=== PATIENT | female | born 1965 | race Caucasian/White ===

== ENCOUNTER 2016-09-23 17:36 | Emergency (ER) | payer OTHER ==
[~2016-09-23] VITALS: Ht 154.9 cm; Wt 70.5 kg
[2016-09-23 17:41] VITALS: BP 145/75; PULSE 95; RESP 16; O2SAT 98
[2016-09-23 18:06] LABS: BASOPHILS % (AUTO) 0.5 % (0-3); EOSINOPHILS % (AUTO) 1.8 % (0-5); MONOCYTES % (AUTO) 12.1 % (4-12); Mean Corpuscular Hemoglobin 31.1 pg (27.0-35.0); Mean Corpuscular Volume 92.3 fL (81-100); NEUTROPHILS % (AUTO) 62.7 % (40-74); Platelet Count 327 bil/L (150-400)
[2016-09-23 18:39] LABS: Magnesium 2.1 mg/dL (1.6-2.6)
--- NOTE | 2016-09-23 18:39 | ED.REPORT ---
HPI-Chest Pain 40 and Over Date of Service Sep 23, 2016 ED Provider: Lc Mobley MD Patient is a 51 year old female who presents to the ED complaining of heart palpitations and chest tightness that began at 5pm this afternoon. Patient states that her first episode of this character lasted for an hour, followed by shorter episodes. She reports associated nausea, shortness of breath, diaphoresis, dizziness, and light headedness with this episodes. Patient states that the chest pain is substernal, with radiation to her arms and neck. Patient states that this was a squeezing pressure/tightness, different from other episodes of chest pain. The chest pain is not present on initial evaluation in the ED. Patient states that she has episodes like this once a week, but not daily. The patient admits to feeling anxious and states that she does sometimes have panic attacks. The patient recently wore a Holter monitor for 3 days, which she turned in yesterday, due to these symptoms. Her acid etch operator is Dr. Conti. Patient has recently had an echocardiogram but has not previously had a stress test. The patient has a family history of heart disease. She denies increased swelling in her legs, pain in her legs, cough, hemoptysis, or long plane/airplane rides. Nursing Notes Stated Complaint: CHEST PAIN Chief Complaint: Chest Pain Nursing Notes Reviewed: Yes Allergies: Coded Allergies: lanolin (Verified Allergy, Intermediate, Rash, 08/24/16) latex (Verified Allergy, Intermediate, Rash, 08/24/16) No Active Prescriptions or Reported Meds General Time Seen by MD: 18:33 Chief Complaint Chest pain Hx Obtained From: Patient Arrived By: Walk-in Sudden in Onset?: No Onset Occurred: 1 - 4 hours ago Symptom Duration: Intermittent Location: : Substernal Quality: Painful, Stabbing Severity: Current: No pain currently Severity: Maximum: Moderate Recent Healthcare: No recent hospitalization, Recent doctor visit Similar Sx Previous: Yes Risk Factors PERC Rule PERC Result: All PERC criteria "No" Past Medical History Past Medical History Notes: Transesophageal Echocardiogram 08/25/2016 Severe proximal septal thickening. Otherwise normal. Past Medical History heart murmur Past Surgical History cervical polyp Reports: Smoking History Former Smoker Social History Drug Use: Denies drug use Other Social History: Good social support, , Local resident Ambulatory Status Independent Review of Systems Constitutional: Denies: Fever Respiratory: Reports: Shortness of breath, Denies: Hemoptysis, Non-productive cough Cardiovascular: Reports: Chest pain, Palpitations GI: Reports: Nausea Musculoskeletal: Denies: Extremity pain, Extremity swelling Skin: Reports Diaphoresis Neurologic: Reports: Dizziness, Lightheaded Complete sys rev & neg: except as marked. Physical Exam Initial Vital Signs Vital Signs (First) Date Time Temp Pulse Resp B/P Pulse Ox O2 Delivery O2 Flow Rate FiO2 09/23/16 17:41 36.9 95 16 145/75 98 Room Air Initial VS: Reviewed Head / Eyes: Atraumatic, Normocephalic, PERRL ENT: Conjunctiva normal, No scleral icterus Neck: Supple, Full range of motion Skin: Warm, Dry, No cyanosis Neurologic: Alert, Oriented, Nonfocal Psychiatric: Mood/affect normal, Behavior normal, Normal thought content General/Constitutional: Awake, Alert, No acute distress Respiratory / Chest: Breath sounds NL, Breath sounds = bilat, No respiratory distress, No rales, No rhonchi, No wheezing Cardiovascular: Heart rate NL, Regular rhythm Heart Sounds / Murmur: Positive: Murmur present... (holosystolic murmur left upper sternal border) Abdomen: Soft, Non-tender Lower Extremity / Pelvis / MS: No swelling, Non-tender, No edema Upper Extremity / MS: No swelling, No edema Interpretation & Diagnostics Lab Results Interpretation Result Diagram: 09/23/16 1750 09/23/16 1750 Test 09/23/16 17:50 09/23/16 21:00 White Blood Count 7.8th/mm3 (3.8-10.1) Red Blood Count 4.82mil/mm3 (3.90-5.20) Hemoglobin 15.0g/dL (12.0-15.6) Hematocrit 44.5% (35.0-46.0) Mean Corpuscular Volume 92.3fL (81-100) Mean Corpuscular Hemoglobin 31.1pg (27.0-35.0) Mean Corpuscular Hemoglobin Concent 33.7% (32.0-37.0) Red Cell Distribution Width 12.7% (12.3-15.4) Platelet Count 327bil/L (150-400) Neutrophils (%) (Auto) 62.7% (40-74) Lymphocytes (%) (Auto) 22.8% (14-46) Monocytes (%) (Auto) 12.1% (4-12) Eosinophils (%) (Auto) 1.8% (0-5) Basophils (%) (Auto) 0.5% (0-3) Sodium Level 145mEq/L (134-144) Potassium Level 3.7mEq/L (3.5-5.2) Chloride Level 105mEq/L (97-108) Carbon Dioxide Level 27mmol/L (18-29) Blood Urea Nitrogen 12mg/dL (6-24) Creatinine 0.69mg/dL (0.57-1.00) Estimat Glomerular Filtration Rate 127mL/min (>59) Glucose Level 92mg/dL (60-99) Calcium Level 9.2mg/dL (8.5-10.1) Magnesium Level 2.1mg/dL (1.6-2.6) Total Bilirubin 0.4mg/dL (0.0-1.2) Aspartate Amino Transf (AST/SGOT) 19U/L (0-50) Alanine Aminotransferase (ALT/SGPT) 17U/L (0-32) Alkaline Phosphatase 88U/L (25-150) Total Protein 7.3g/dL (6.4-8.4) Albumin 4.2g/dL (3.4-5.0) Troponin T 0.010ug/L (0.0-0.011) ECG Interpretation ECG Interpretation: Normal sinus rhythm, rate [address] segment changes Time: 19:10 Interpreted by: ED physician X-Ray Chest Interpretation Chest Xray Interpretation: IMPRESSION: Source of chest pain is not seen. Normal for age. Dictated by: Neri Bourne M.D. on 09/23/2016 at 19:54 Approved by: Neri Bourne M.D. on 09/23/2016 at 19:54 Interpretation / Wet Read by: Interpret - Radiologist Re-Eval/Medical Decision Med Decision/Clinical Course 51-year-old female long history of palpitations being worked up extensively by her acid etch operator as an outpatient presenting with chest tightness that lasted one hour beginning at 5 PM this evening. Vital signs stable. Normal EKG. 2 sets troponins normal. Do not suspect cardiac ischemia. PERC negative therefore do not suspect PE. Chest x-ray no evidence pneumonia. Patient discharged home with plans to follow-up with her acid etch operator several days and her primary doctor. Return precautions given. Source of Hx: Old records Time of Eval: 22:05 Patient Status: Condition improved Re-Evaluation/Progress Note: Rechecked the patient to discuss her labs, EKG, and chest x-ray. Patient understands and agrees with the plan to be discharged home. Discharge instructions and follow-up discussed. All questions were addressed. Return to the ED warnings given. Counseled Regarding: Diagnosis, Lab results, Need for follow-up, When/why to return to ED Discharge & Departure Primary Impression: Chest pain Chest pain type: unspecified Qualified Code: R07.9 - Chest pain, unspecified Additional Impression: Palpitations Disposition: Home Discharge Condition All VS Reviewed: Yes Condition: Stable Patient Instructions: Chest Pain (ED) Additional Instructions: Your evaluation today was reassuring that there is not a dangerous cause for your symptoms. You chest x-ray and EKG were normal. You laboratory evaluation was normal. This includes 2x Troponin, which is a blood test for cardiac damage. Follow-up with your acid etch operator and primary care physician in the next week. Return to the emergency department if you worsening chest pain, shortness of breath, or any other concerning symptoms. Referrals: Lc Ramos MD (PCP) Vj Curiel MD Attestation Portions of this note were transcribed by Carmela Humphrey. I, Dr. Mobley personally performed the history, physical exam and medical decision-making; I reviewed and confirmed the accuracy of the information in the transcribed note. Signed by: Key Webber, 09/23/2016 [id number] copies to: Vj Curiel MD; Lc Ramos MD, Ben M MD Sep 23, 2016 18:39 Carmela Humphrey Sep 23, 2016 19:09
[2016-09-23 18:40] VITALS: BP 136/52; PULSE 74; RESP 14; O2SAT 99
[2016-09-23 18:49] LABS: TROPONIN T < 0.010 ug/L (0.0-0.011)
--- NOTE | 2016-09-23 19:55 | DRSVH ---
PROCEDURE: X-RAY CHEST ONE VIEW, PORTABLE ([id number]) INDICATIONS: chest pain TECHNIQUE: One view of the chest was acquired. COMPARISON: None. FINDINGS: Surgical changes and devices: None. Lungs and pleura: No pleural effusions or pneumothorax. Lungs are clear. Mediastinum: Mediastinal contours appear normal. Heart size is normal. Bones and chest wall: No suspicious bony lesions. Overlying soft tissues appear unremarkable. IMPRESSION: Source of chest pain is not seen. Normal for age. Dictated by: Neri Bourne M.D. on 09/23/2016 at 19:54 Approved by: Neri Bourne M.D. on 09/23/2016 at 19:54
[2016-09-23 19:57] VITALS: BP 119/45; PULSE 67; RESP 18; O2SAT 99
[2016-09-23 21:44] VITALS: BP 127/71; PULSE 62; RESP 18; O2SAT 98
[2016-09-23 22:07] VITALS: BP 134/69; PULSE 77; RESP 18; O2SAT 97
== END 2016-09-23 22:07 | disposition home or self-care (01) ==
LOC: SED 17:36
DX: R07.2 Precordial pain (principal); R00.2 Palpitations; R11.0 Nausea; R06.02 Shortness of breath; R61 Generalized hyperhidrosis; R42 Dizziness and giddiness; F41.0 Panic disorder [episodic paroxysmal anxiety]; Z87.891 Personal history of nicotine dependence; Z88.8 Allergy status to other drugs, medicaments and biological substances; Z91.040 Latex allergy status
CPT/HCPCS: 36415; 71010; 80053; 83735; 84484; 85025; 93005; 99285; A4300; G0463